=== PATIENT | female | born 1955 | race Caucasian/White ===

== ENCOUNTER 2017-11-10 01:53 | Inpatient (IN) | payer MEDICAID, OTHER ==
[2017-11-10 04:39] LABS: ADD MAN DIFF? NO
[2017-11-10 04:40] LABS: BASOPHIL # 0.1 10^3/ul (0.0-0.1); BASOPHILS % 0.9 % (0.0-2.0); EOSINOPHILS # 0.2 10^3/ul (0.0-0.5); HEMATOCRIT 38.4 % (37.0-47.0); HEMOGLOBIN 12.6 g/dl (12.0-16.0); LYMPHOCYTES # 2.2 10^3/ul (0.8-2.9); MEAN CORPUSCULAR HEMOGLOBIN 29.6 pg (29.0-33.0); MEAN CORPUSCULAR HGB CONC 32.8 g/dl (32.0-37.0); MEAN CORPUSCULAR VOLUME 90.4 fl (82.0-101.0); MEAN PLATELET VOLUME 10.3 fl (7.4-10.4); MONOCYTE # 0.8 10^3/ul (0.3-0.9); MONOCYTES % 9.9 % (0.0-11.0); NEUTROPHIL # 4.7 10^3/ul (1.6-7.5); NEUTROPHILS % 58.7 % (39.0-77.0); PLATELET COUNT 293 10^3/UL (140-415); RED BLOOD COUNT 4.25 10^6/ul (4.20-5.40); RED CELL DISTRIBUTION WIDTH 15.1 % (11.5-14.5)
[2017-11-10 05:05] LABS: ALANINE AMINOTRANSFERASE 20 IU/L (13-69); ALBUMIN 3.8 g/dl (3.3-4.9); ALKALINE PHOSPHATASE 78 IU/L (42-121); ANION GAP 15 (8-16); ASPARTATE AMINO TRANSFERASE 20 IU/L (15-46); BILIRUBIN,INDIRECT 0.3 mg/dl (0-1.1); BILIRUBIN,TOTAL 0.3 mg/dl (0.2-1.3); BLOOD UREA NITROGEN 26 mg/dl (7-20); CALCIUM 9.3 mg/dl (8.4-10.2); CARBON DIOXIDE 29 mmol/L (21-31); CHLORIDE 104 mmol/L (97-110); CREATININE 0.88 mg/dl (0.44-1.00); GLUCOSE 103 mg/dl (70-220); LIPASE 61 U/L (23-300); POTASSIUM 3.7 mmol/L (3.5-5.1); SODIUM 144 mmol/L (135-144)
[2017-11-10] MEDS: PIPER-TAZO 3.375 GM IV (PMX) 100 ML IVPB ×3 (06:02→23:37)
[2017-11-10] MEDS: ONDANSETRON 4 MG INJ IV (06:30)
[2017-11-10] MEDS: morphine 4 MG/ML VIAL IV (06:35)
[2017-11-10 07:36] LABS: ADD UMIC YES; UR ASCORBIC ACID NEGATIVE (NEGATIVE); UR BACTERIA FEW /HPF (NONE SEEN); UR BILIRUBIN (Dip) NEGATIVE (NEGATIVE); UR BLOOD (Dip) 1+ mg/dL (NEGATIVE); UR BUDDING YEAST MODERATE /HPF (NONE SEEN); UR CLARITY TURBID (CLEAR); UR COLOR YELLOW (YELLOW); UR GLUCOSE (Dip) NEGATIVE (NEGATIVE); UR KETONES (Dip) NEGATIVE (NEGATIVE); UR LEUKOCYTE ESTERASE (Dip) NEGATIVE Leu/ul (NEGATIVE); UR MUCUS MANY /HPF (NONE SEEN); UR NITRITE (Dip) NEGATIVE (NEGATIVE); UR RBC 10 /HPF (0-5); UR SPECIFIC GRAVITY (Dip) 1.032 (1.003-1.030); UR SQUAMOUS EPITHELIAL CELL FEW /HPF (FEW); UR TOTAL PROTEIN (Dip) 1+ mg/dl (NEGATIVE); UR UROBILINOGEN (Dip) 1+ mg/dL (NEGATIVE); UR WBC 49 /HPF (0-5)
[2017-11-10] MEDS ORDERED: MAGNESIUM HYDROXIDE 30ML CUP PO (08:30)
[2017-11-10] MEDS ORDERED: NACL 0.9% 3 ML SYG IV (08:30)
[2017-11-10] MEDS ORDERED: ONDANSETRON 4 MG INJ IV (08:30)
[2017-11-10] MEDS ORDERED: BISACODYL 10 MG SUPP PR (08:30)
[2017-11-10] MEDS ORDERED: VANCOMYCIN IV PER PHARMACY XX (08:30)
[2017-11-10] MEDS ORDERED: HYDROCODONE/APAP (5/325) TAB PO ×2 (08:30)
[2017-11-10] MEDS: ASPIRIN 81 MG TAB PO (09:22)
[2017-11-10] MEDS: GABAPENTIN 300 MG CAP PO (09:23)
[2017-11-10] MEDS: ENOXAPARIN 40 MG/0.4 ML SYG SC (09:23)
[2017-11-10] MEDS: VANCOMYCIN 1 GM in 250 ML IVPB ×2 (09:47→11:43)
[2017-11-10] MEDS: GABAPENTIN 100 MG CAP PO ×3 (13:00→23:38)
[2017-11-10 16:48] LABS: HAAIG REFLEX REFLEX FILED
[2017-11-10 17:46] LABS: HEPATITIS B SURFACE ANTIGEN NEGATIVE (NEGATIVE)
[2017-11-10 18:03] LABS: HEPATITIS B CORE ANTIBODY NEGATIVE (NEGATIVE); HEPATITIS C VIRAL ANTIBODY NEGATIVE (NEGATIVE)
[2017-11-10 18:04] LABS: HIV 1&2 ANTIBODY NEGATIVE (NEGATIVE)
[2017-11-10 19:29] LABS: HEMOGLOBIN A1C 5.8 % (0-5.9)
[2017-11-10] MEDS: MONTELUKAST 10 MG TAB PO (21:00)
[2017-11-11] MEDS: VANCOMYCIN 1.5 GM in SOD CHLORIDE 0.9% 250 ML IVPB ×3 (02:20→16:25)
[2017-11-11] MEDS: PIPER-TAZO 3.375 GM IV (PMX) 100 ML IVPB ×3 (05:51→21:44)
[2017-11-11] MEDS: PANTOPRAZOLE (EC) 40 MG TAB PO (05:52)
[2017-11-11] MEDS: ASPIRIN 81 MG TAB PO (09:00)
[2017-11-11] MEDS: ENOXAPARIN 40 MG/0.4 ML SYG SC (09:00)
[2017-11-11] MEDS: GABAPENTIN 100 MG CAP PO ×5 (09:21→21:44)
[2017-11-11] MEDS: ACETAMINOPHEN 325 MG TAB PO ×2 (09:22→17:14)
[2017-11-11] MEDS: CHOLECALCIFEROL 2,000 UNIT CAP PO ×2 (12:50→13:57)
[2017-11-11] MEDS: LACTOBACILLUS RHAMNOSUS CAP PO (17:14)
[2017-11-11] MEDS: MONTELUKAST 10 MG TAB PO (21:00)
[2017-11-12 03:51] LABS: ADD MAN DIFF? NO
[2017-11-12 04:11] LABS: WHITE BLOOD COUNT 6.4 10^3/ul (4.8-10.8)
[2017-11-12 04:11] LABS: BASOPHIL # 0.1 10^3/ul (0.0-0.1); BASOPHILS % 1.1 % (0.0-2.0); EOSINOPHILS # 0.4 10^3/ul (0.0-0.5); EOSINOPHILS % 6.2 % (0.0-7.0); HEMOGLOBIN 11.1 g/dl (12.0-16.0); LYMPHOCYTES # 1.5 10^3/ul (0.8-2.9); LYMPHOCYTES % 23.6 % (15.0-51.0); MEAN CORPUSCULAR HEMOGLOBIN 29.8 pg (29.0-33.0); MEAN CORPUSCULAR HGB CONC 32.6 g/dl (32.0-37.0); MEAN CORPUSCULAR VOLUME 91.4 fl (82.0-101.0); MEAN PLATELET VOLUME 10.2 fl (7.4-10.4); MONOCYTE # 0.4 10^3/ul (0.3-0.9); MONOCYTES % 6.2 % (0.0-11.0); NEUTROPHILS % 62.6 % (39.0-77.0); PLATELET COUNT 242 10^3/UL (140-415); RED BLOOD COUNT 3.72 10^6/ul (4.20-5.40); RED CELL DISTRIBUTION WIDTH 15.4 % (11.5-14.5)
[2017-11-12 04:12] LABS: ALBUMIN 3.2 g/dl (3.3-4.9); ANION GAP 14 (8-16); BLOOD UREA NITROGEN 24 mg/dl (7-20); CALCIUM 8.4 mg/dl (8.4-10.2); CARBON DIOXIDE 28 mmol/L (21-31); CHLORIDE 107 mmol/L (97-110); CREATININE 0.93 mg/dl (0.44-1.00); GLUCOSE 121 mg/dl (70-220); MAGNESIUM 2.1 mg/dl (1.7-2.5); PHOSPHORUS 3.4 mg/dl (2.5-4.9); SODIUM 145 mmol/L (135-144)
[2017-11-12 04:16] LABS: VANCOMYCIN,TROUGH 13.9 ug/ml (10.0-20.0)
[2017-11-12 04:31] LABS: FREE T4 (FREE THYROXINE) 0.89 ng/dl (0.78-2.44)
[2017-11-12] MEDS: VANCOMYCIN 1.5 GM in SOD CHLORIDE 0.9% 250 ML IVPB (04:37)
[2017-11-12 05:20] LABS: FREE T3 4.53 pg/ml (2.77-5.27)
[2017-11-12] MEDS: PANTOPRAZOLE (EC) 40 MG TAB PO (06:08)
[2017-11-12] MEDS: ACETAMINOPHEN 325 MG TAB PO (06:31)
[2017-11-12] MEDS: CHOLECALCIFEROL 2,000 UNIT CAP PO (09:49)
[2017-11-12] MEDS: GABAPENTIN 100 MG CAP PO ×4 (09:49→21:39)
[2017-11-12] MEDS: PIPER-TAZO 3.375 GM IV (PMX) 100 ML IVPB ×3 (09:49→21:40)
[2017-11-12] MEDS: ASPIRIN 81 MG TAB PO (09:49)
[2017-11-12] MEDS: LACTOBACILLUS RHAMNOSUS CAP PO ×3 (09:49→17:30)
[2017-11-12] MEDS: VANCOMYCIN 1.25 GM in SOD CHLORIDE 0.9% 250 ML IVPB (17:30)
[2017-11-12] MEDS: MONTELUKAST 10 MG TAB PO (21:00)
[2017-11-13] MEDS: VANCOMYCIN 1.25 GM in SOD CHLORIDE 0.9% 250 ML IVPB ×2 (04:12→16:12)
[2017-11-13] MEDS: PANTOPRAZOLE (EC) 40 MG TAB PO (06:04)
[2017-11-13] MEDS: LACTOBACILLUS RHAMNOSUS CAP PO ×3 (07:35→17:50)
[2017-11-13] MEDS: GABAPENTIN 100 MG CAP PO ×4 (09:43→20:57)
[2017-11-13] MEDS: CHOLECALCIFEROL 2,000 UNIT CAP PO (09:43)
[2017-11-13] MEDS: ASPIRIN 81 MG TAB PO (09:43)
[2017-11-13] MEDS: PIPER-TAZO 3.375 GM IV (PMX) 100 ML IVPB (09:43)
[2017-11-13] MEDS: ERGOCALCIFEROL 50,000 UNIT CAP PO (12:04)
[2017-11-13] MEDS: CEFTRIAXONE 1 GM/50 ML (PMX) 50 ML IVPB (13:16)
[2017-11-13] MEDS: MONTELUKAST 10 MG TAB PO (21:00)
[2017-11-14 03:53] LABS: CREATININE 0.92 mg/dl (0.44-1.00)
[2017-11-14 03:53] LABS: BLOOD UREA NITROGEN 19 mg/dl (7-20)
[2017-11-14 03:59] LABS: VANCOMYCIN,TROUGH 15.9 ug/ml (10.0-20.0)
[2017-11-14] MEDS: VANCOMYCIN 1.25 GM in SOD CHLORIDE 0.9% 250 ML IVPB (04:31)
[2017-11-14] MEDS ORDERED: GABAPENTIN 100 MG CAP (04:55)
[2017-11-14] MEDS: GABAPENTIN 100 MG CAP PO ×4 (05:22→23:36)
[2017-11-14] MEDS: PANTOPRAZOLE (EC) 40 MG TAB PO (05:24)
[2017-11-14] MEDS: LACTOBACILLUS RHAMNOSUS CAP PO ×3 (08:40→17:30)
[2017-11-14] MEDS: CHOLECALCIFEROL 2,000 UNIT CAP PO (08:40)
[2017-11-14] MEDS: ASPIRIN 81 MG TAB PO (08:40)
[2017-11-14] MEDS: CEFTRIAXONE 1 GM/50 ML (PMX) 50 ML IVPB (12:43)
[2017-11-14] MEDS: VANCOMYCIN 1 GM 250 ML IVPB (17:29)
[2017-11-14] MEDS: MONTELUKAST 10 MG TAB PO (21:00)
[2017-11-15] MEDS: VANCOMYCIN 1 GM 250 ML IVPB ×2 (05:54→18:31)
[2017-11-15] MEDS: PANTOPRAZOLE (EC) 40 MG TAB PO (05:54)
[2017-11-15] MEDS: GABAPENTIN 100 MG CAP PO ×3 (05:54→17:19)
[2017-11-15] MEDS: ASPIRIN 81 MG TAB PO (08:25)
[2017-11-15] MEDS: CHOLECALCIFEROL 2,000 UNIT CAP PO (08:25)
[2017-11-15] MEDS: LACTOBACILLUS RHAMNOSUS CAP PO ×3 (08:25→17:19)
[2017-11-15] MEDS: CEFTRIAXONE 1 GM/50 ML (PMX) 50 ML IVPB (12:41)
[2017-11-15] MEDS: IBUPROFEN 600 MG TAB GTB (15:07)
[2017-11-15] MEDS: MONTELUKAST 10 MG TAB PO (21:00)
[2017-11-16] MEDS: GABAPENTIN 100 MG CAP PO ×5 (00:12→23:26)
[2017-11-16] MEDS: PANTOPRAZOLE (EC) 40 MG TAB PO (05:34)
[2017-11-16] MEDS: VANCOMYCIN 1 GM 250 ML IVPB (05:34)
[2017-11-16] MEDS: ASPIRIN 81 MG TAB PO (09:00)
[2017-11-16] MEDS: LACTOBACILLUS RHAMNOSUS CAP PO ×3 (09:28→18:30)
[2017-11-16] MEDS: CHOLECALCIFEROL 2,000 UNIT CAP PO (09:30)
[2017-11-16] MEDS ORDERED: ACETAMINOPHEN 1000MG/100ML IV 100 ML IVPB (12:30)
[2017-11-16] MEDS: CEFTRIAXONE 1 GM/50 ML (PMX) 50 ML IVPB (13:35)
[2017-11-16] MEDS: FUROSEMIDE 20 MG INJ IV (13:36)
[2017-11-16] MEDS ORDERED: IBUPROFEN 600 MG TAB PO (15:00)
[2017-11-16] MEDS: IBUPROFEN 600 MG TAB PO (15:11)
[2017-11-16] MEDS: MONTELUKAST 10 MG TAB PO (21:00)
[2017-11-16] MEDS: DOXYCYCLINE 100 MG TAB PO (21:23)
[2017-11-17] MEDS: GABAPENTIN 100 MG CAP PO ×3 (05:50→17:48)
[2017-11-17] MEDS: PANTOPRAZOLE (EC) 40 MG TAB PO (05:50)
[2017-11-17] MEDS: ASPIRIN 81 MG TAB PO (09:00)
[2017-11-17 09:58] LABS: ADD MAN DIFF? NO
[2017-11-17 10:01] LABS: BASOPHIL # 0.1 10^3/ul (0.0-0.1); BASOPHILS % 1.1 % (0.0-2.0); EOSINOPHILS # 0.4 10^3/ul (0.0-0.5); EOSINOPHILS % 5.2 % (0.0-7.0); HEMATOCRIT 35.7 % (37.0-47.0); HEMOGLOBIN 11.8 g/dl (12.0-16.0); LYMPHOCYTES # 1.9 10^3/ul (0.8-2.9); MEAN CORPUSCULAR HEMOGLOBIN 30.2 pg (29.0-33.0); MEAN CORPUSCULAR HGB CONC 33.1 g/dl (32.0-37.0); MEAN CORPUSCULAR VOLUME 91.3 fl (82.0-101.0); MEAN PLATELET VOLUME 10.2 fl (7.4-10.4); MONOCYTE # 0.5 10^3/ul (0.3-0.9); NEUTROPHIL # 4.6 10^3/ul (1.6-7.5); NEUTROPHILS % 61.4 % (39.0-77.0); PLATELET COUNT 256 10^3/UL (140-415); RED BLOOD COUNT 3.91 10^6/ul (4.20-5.40); RED CELL DISTRIBUTION WIDTH 15.4 % (11.5-14.5)
[2017-11-17 10:01] LABS: WHITE BLOOD COUNT 7.5 10^3/ul (4.8-10.8)
[2017-11-17 10:32] LABS: ANION GAP 14 (8-16); BLOOD UREA NITROGEN 24 mg/dl (7-20); CALCIUM 8.8 mg/dl (8.4-10.2); CARBON DIOXIDE 27 mmol/L (21-31); CHLORIDE 103 mmol/L (97-110); CREATININE 0.87 mg/dl (0.44-1.00); GLUCOSE 131 mg/dl (70-220); MAGNESIUM 2.1 mg/dl (1.7-2.5); POTASSIUM 4.3 mmol/L (3.5-5.1); SODIUM 140 mmol/L (135-144)
[2017-11-17] MEDS: CHOLECALCIFEROL 2,000 UNIT CAP PO (10:47)
[2017-11-17] MEDS: ACETAMINOPHEN 325 MG TAB PO (10:47)
[2017-11-17] MEDS: LACTOBACILLUS RHAMNOSUS CAP PO ×3 (10:47→17:48)
[2017-11-17] MEDS: DOXYCYCLINE 100 MG TAB PO ×2 (10:47→20:50)
[2017-11-17] MEDS: FUROSEMIDE 20 MG INJ IV ×2 (10:48→17:51)
[2017-11-17] MEDS: MONTELUKAST 10 MG TAB PO (20:50)
[2017-11-18] MEDS: GABAPENTIN 100 MG CAP PO ×4 (00:05→17:23)
[2017-11-18] MEDS: ACETAMINOPHEN 325 MG TAB PO (04:53)
[2017-11-18] MEDS: FUROSEMIDE 20 MG INJ IV (06:00)
[2017-11-18] MEDS: PANTOPRAZOLE (EC) 40 MG TAB PO (06:00)
[2017-11-18 06:32] LABS: ADD MAN DIFF? NO
[2017-11-18 06:46] LABS: WHITE BLOOD COUNT 7.2 10^3/ul (4.8-10.8)
[2017-11-18 06:46] LABS: BASOPHIL # 0.1 10^3/ul (0.0-0.1); EOSINOPHILS # 0.4 10^3/ul (0.0-0.5); EOSINOPHILS % 5.3 % (0.0-7.0); HEMATOCRIT 36.4 % (37.0-47.0); HEMOGLOBIN 11.9 g/dl (12.0-16.0); LYMPHOCYTES # 2.2 10^3/ul (0.8-2.9); MEAN CORPUSCULAR HEMOGLOBIN 29.7 pg (29.0-33.0); MEAN CORPUSCULAR HGB CONC 32.7 g/dl (32.0-37.0); MEAN CORPUSCULAR VOLUME 90.8 fl (82.0-101.0); MEAN PLATELET VOLUME 10.3 fl (7.4-10.4); MONOCYTE # 0.6 10^3/ul (0.3-0.9); MONOCYTES % 8.4 % (0.0-11.0); NEUTROPHIL # 3.9 10^3/ul (1.6-7.5); PLATELET COUNT 235 10^3/UL (140-415); RED BLOOD COUNT 4.01 10^6/ul (4.20-5.40); RED CELL DISTRIBUTION WIDTH 15.4 % (11.5-14.5)
[2017-11-18 06:57] LABS: ANION GAP 12 (8-16); BLOOD UREA NITROGEN 27 mg/dl (7-20); CALCIUM 8.6 mg/dl (8.4-10.2); CARBON DIOXIDE 29 mmol/L (21-31); CHLORIDE 102 mmol/L (97-110); GLUCOSE 95 mg/dl (70-220); MAGNESIUM 2.1 mg/dl (1.7-2.5); PHOSPHORUS 4.1 mg/dl (2.5-4.9); POTASSIUM 4.1 mmol/L (3.5-5.1); SODIUM 139 mmol/L (135-144)
[2017-11-18] MEDS: DOXYCYCLINE 100 MG TAB PO ×2 (08:33→21:03)
[2017-11-18] MEDS: LACTOBACILLUS RHAMNOSUS CAP PO ×3 (08:33→17:22)
[2017-11-18] MEDS: CHOLECALCIFEROL 2,000 UNIT CAP PO (08:33)
[2017-11-18] MEDS: ASPIRIN 81 MG TAB PO (08:33)
[2017-11-18] MEDS: FUROSEMIDE 40 MG INJ IV (17:23)
[2017-11-18] MEDS: MONTELUKAST 10 MG TAB PO (21:00)
[2017-11-19] MEDS: GABAPENTIN 100 MG CAP PO ×4 (00:10→18:03)
[2017-11-19] MEDS: PANTOPRAZOLE (EC) 40 MG TAB PO (05:56)
[2017-11-19] MEDS: FUROSEMIDE 40 MG INJ IV ×2 (05:59→18:03)
[2017-11-19 06:33] LABS: ADD MAN DIFF? NO
[2017-11-19 06:43] LABS: WHITE BLOOD COUNT 7.4 10^3/ul (4.8-10.8)
[2017-11-19 06:43] LABS: BASOPHIL # 0.1 10^3/ul (0.0-0.1); BASOPHILS % 1.3 % (0.0-2.0); EOSINOPHILS # 0.4 10^3/ul (0.0-0.5); HEMATOCRIT 33.9 % (37.0-47.0); HEMOGLOBIN 11.2 g/dl (12.0-16.0); LYMPHOCYTES # 2.2 10^3/ul (0.8-2.9); LYMPHOCYTES % 28.9 % (15.0-51.0); MEAN CORPUSCULAR HEMOGLOBIN 29.8 pg (29.0-33.0); MEAN CORPUSCULAR VOLUME 90.2 fl (82.0-101.0); MONOCYTE # 0.6 10^3/ul (0.3-0.9); MONOCYTES % 8.1 % (0.0-11.0); NEUTROPHIL # 4.2 10^3/ul (1.6-7.5); NEUTROPHILS % 56.3 % (39.0-77.0); PLATELET COUNT 243 10^3/UL (140-415); RED BLOOD COUNT 3.76 10^6/ul (4.20-5.40); RED CELL DISTRIBUTION WIDTH 15.6 % (11.5-14.5)
[2017-11-19 07:08] LABS: ANION GAP 12 (8-16); BLOOD UREA NITROGEN 26 mg/dl (7-20); CALCIUM 8.6 mg/dl (8.4-10.2); CARBON DIOXIDE 32 mmol/L (21-31); CHLORIDE 101 mmol/L (97-110); CREATININE 0.87 mg/dl (0.44-1.00); GLUCOSE 103 mg/dl (70-220); MAGNESIUM 2.2 mg/dl (1.7-2.5); PHOSPHORUS 4.1 mg/dl (2.5-4.9); POTASSIUM 4.2 mmol/L (3.5-5.1); SODIUM 141 mmol/L (135-144)
[2017-11-19] MEDS: LACTOBACILLUS RHAMNOSUS CAP PO ×3 (09:09→18:03)
[2017-11-19] MEDS: DOXYCYCLINE 100 MG TAB PO ×2 (09:09→22:35)
[2017-11-19] MEDS: CHOLECALCIFEROL 2,000 UNIT CAP PO (09:09)
[2017-11-19] MEDS: ASPIRIN 81 MG TAB PO (09:09)
[2017-11-19] MEDS: MONTELUKAST 10 MG TAB PO (21:00)
[2017-11-20] MEDS: GABAPENTIN 100 MG CAP PO ×5 (00:26→23:55)
[2017-11-20] MEDS: FUROSEMIDE 40 MG INJ IV (06:13)
[2017-11-20] MEDS: PANTOPRAZOLE (EC) 40 MG TAB PO (06:13)
[2017-11-20 07:09] LABS: ADD MAN DIFF? NO
[2017-11-20 07:16] LABS: BASOPHIL # 0.1 10^3/ul (0.0-0.1); BASOPHILS % 0.9 % (0.0-2.0); EOSINOPHILS # 0.4 10^3/ul (0.0-0.5); EOSINOPHILS % 4.7 % (0.0-7.0); HEMATOCRIT 36.2 % (37.0-47.0); HEMOGLOBIN 11.9 g/dl (12.0-16.0); LYMPHOCYTES # 2.1 10^3/ul (0.8-2.9); LYMPHOCYTES % 28.5 % (15.0-51.0); MEAN CORPUSCULAR HEMOGLOBIN 29.7 pg (29.0-33.0); MEAN CORPUSCULAR HGB CONC 32.9 g/dl (32.0-37.0); MEAN CORPUSCULAR VOLUME 90.3 fl (82.0-101.0); MEAN PLATELET VOLUME 10.2 fl (7.4-10.4); MONOCYTE # 0.7 10^3/ul (0.3-0.9); MONOCYTES % 9.4 % (0.0-11.0); NEUTROPHIL # 4.2 10^3/ul (1.6-7.5); NEUTROPHILS % 56.1 % (39.0-77.0); PLATELET COUNT 256 10^3/UL (140-415); RED BLOOD COUNT 4.01 10^6/ul (4.20-5.40); RED CELL DISTRIBUTION WIDTH 15.8 % (11.5-14.5)
[2017-11-20 07:16] LABS: WHITE BLOOD COUNT 7.5 10^3/ul (4.8-10.8)
[2017-11-20 07:31] LABS: ANION GAP 13 (8-16); BLOOD UREA NITROGEN 31 mg/dl (7-20); CALCIUM 8.6 mg/dl (8.4-10.2); CARBON DIOXIDE 31 mmol/L (21-31); CHLORIDE 100 mmol/L (97-110); CREATININE 0.86 mg/dl (0.44-1.00); GLUCOSE 95 mg/dl (70-220); MAGNESIUM 2.2 mg/dl (1.7-2.5); POTASSIUM 4.1 mmol/L (3.5-5.1); SODIUM 140 mmol/L (135-144)
[2017-11-20] MEDS: DOXYCYCLINE 100 MG TAB PO ×2 (08:12→22:12)
[2017-11-20] MEDS: ASPIRIN 81 MG TAB PO (08:12)
[2017-11-20] MEDS: CHOLECALCIFEROL 2,000 UNIT CAP PO (08:12)
[2017-11-20] MEDS: LACTOBACILLUS RHAMNOSUS CAP PO ×3 (08:12→17:43)
[2017-11-20] MEDS: ACETAMINOPHEN 325 MG TAB PO ×2 (08:13→17:47)
[2017-11-20] MEDS: ERGOCALCIFEROL 50,000 UNIT CAP PO (10:40)
[2017-11-20] MEDS: BUPROPION 100 MG TAB PO (13:30)
[2017-11-20] MEDS ORDERED: VITAMIN A & D 5 GM OINT PACKET TOP (20:24)
[2017-11-20] MEDS: MONTELUKAST 10 MG TAB PO (20:25)
[2017-11-21] MEDS: ACETAMINOPHEN 325 MG TAB PO ×3 (03:02→22:05)
[2017-11-21] MEDS ORDERED: VITAMIN A & D 5 GM OINT PACKET TOP ×3 (05:28→20:23)
[2017-11-21 05:39] LABS: ADD MAN DIFF? NO
[2017-11-21 05:40] LABS: BASOPHIL # 0.1 10^3/ul (0.0-0.1); BASOPHILS % 1.4 % (0.0-2.0); EOSINOPHILS # 0.4 10^3/ul (0.0-0.5); EOSINOPHILS % 6.2 % (0.0-7.0); HEMATOCRIT 36.6 % (37.0-47.0); HEMOGLOBIN 12.1 g/dl (12.0-16.0); LYMPHOCYTES # 2.2 10^3/ul (0.8-2.9); LYMPHOCYTES % 30.7 % (15.0-51.0); MEAN CORPUSCULAR HEMOGLOBIN 30.1 pg (29.0-33.0); MEAN CORPUSCULAR HGB CONC 33.1 g/dl (32.0-37.0); MEAN PLATELET VOLUME 9.9 fl (7.4-10.4); MONOCYTE # 0.7 10^3/ul (0.3-0.9); MONOCYTES % 9.3 % (0.0-11.0); NEUTROPHIL # 3.7 10^3/ul (1.6-7.5); PLATELET COUNT 246 10^3/UL (140-415); RED BLOOD COUNT 4.02 10^6/ul (4.20-5.40); RED CELL DISTRIBUTION WIDTH 15.5 % (11.5-14.5)
[2017-11-21 05:40] LABS: WHITE BLOOD COUNT 7.1 10^3/ul (4.8-10.8)
[2017-11-21 06:01] LABS: ANION GAP 13 (8-16); BLOOD UREA NITROGEN 28 mg/dl (7-20); CALCIUM 8.8 mg/dl (8.4-10.2); CARBON DIOXIDE 28 mmol/L (21-31); CHLORIDE 102 mmol/L (97-110); CREATININE 0.88 mg/dl (0.44-1.00); GLUCOSE 101 mg/dl (70-220); MAGNESIUM 2.1 mg/dl (1.7-2.5); PHOSPHORUS 4.1 mg/dl (2.5-4.9); POTASSIUM 4.2 mmol/L (3.5-5.1); SODIUM 139 mmol/L (135-144)
[2017-11-21] MEDS: PANTOPRAZOLE (EC) 40 MG TAB PO (06:46)
[2017-11-21] MEDS: FUROSEMIDE 20 MG TAB PO (06:46)
[2017-11-21] MEDS: GABAPENTIN 100 MG CAP PO ×3 (06:46→17:32)
[2017-11-21] MEDS: CHOLECALCIFEROL 2,000 UNIT CAP PO (08:29)
[2017-11-21] MEDS: ASPIRIN 81 MG TAB PO (08:29)
[2017-11-21] MEDS: LACTOBACILLUS RHAMNOSUS CAP PO ×3 (08:29→17:32)
[2017-11-21] MEDS: DOXYCYCLINE 100 MG TAB PO ×2 (08:29→20:25)
[2017-11-21] MEDS: BUPROPION 100 MG TAB PO (08:30)
[2017-11-21] MEDS: NAPROXEN 250 MG TAB PO ×2 (12:04→17:32)
[2017-11-21] MEDS: MONTELUKAST 10 MG TAB PO (20:25)
[2017-11-22] MEDS: GABAPENTIN 100 MG CAP PO ×2 (00:33→05:54)
[2017-11-22] MEDS: FUROSEMIDE 20 MG TAB PO (05:55)
[2017-11-22] MEDS: PANTOPRAZOLE (EC) 40 MG TAB PO (05:55)
[2017-11-22] MEDS: BUPROPION 100 MG TAB PO (08:22)
[2017-11-22] MEDS: ASPIRIN 81 MG TAB PO (08:23)
[2017-11-22] MEDS: LACTOBACILLUS RHAMNOSUS CAP PO ×3 (08:23→17:27)
[2017-11-22] MEDS: CHOLECALCIFEROL 2,000 UNIT CAP PO (08:23)
[2017-11-22] MEDS: NAPROXEN 250 MG TAB PO ×2 (08:23→17:27)
[2017-11-22] MEDS: DOXYCYCLINE 100 MG TAB PO ×2 (08:23→20:33)
[2017-11-22 09:09] LABS: ADD MAN DIFF? NO
[2017-11-22 09:12] LABS: BASOPHIL # 0.1 10^3/ul (0.0-0.1); BASOPHILS % 1.4 % (0.0-2.0); EOSINOPHILS # 0.6 10^3/ul (0.0-0.5); EOSINOPHILS % 7.7 % (0.0-7.0); HEMATOCRIT 38.8 % (37.0-47.0); HEMOGLOBIN 12.5 g/dl (12.0-16.0); LYMPHOCYTES # 2.1 10^3/ul (0.8-2.9); LYMPHOCYTES % 29.5 % (15.0-51.0); MEAN CORPUSCULAR HEMOGLOBIN 29.4 pg (29.0-33.0); MEAN CORPUSCULAR HGB CONC 32.2 g/dl (32.0-37.0); MEAN CORPUSCULAR VOLUME 91.3 fl (82.0-101.0); MEAN PLATELET VOLUME 9.8 fl (7.4-10.4); MONOCYTE # 0.4 10^3/ul (0.3-0.9); NEUTROPHIL # 3.9 10^3/ul (1.6-7.5); NEUTROPHILS % 55.1 % (39.0-77.0); PLATELET COUNT 257 10^3/UL (140-415); RED BLOOD COUNT 4.25 10^6/ul (4.20-5.40); RED CELL DISTRIBUTION WIDTH 15.5 % (11.5-14.5)
[2017-11-22 09:12] LABS: WHITE BLOOD COUNT 7.2 10^3/ul (4.8-10.8)
[2017-11-22 09:38] LABS: ANION GAP 17 (8-16); BLOOD UREA NITROGEN 29 mg/dl (7-20); CALCIUM 8.9 mg/dl (8.4-10.2); CARBON DIOXIDE 28 mmol/L (21-31); CHLORIDE 100 mmol/L (97-110); GLUCOSE 152 mg/dl (70-220); PHOSPHORUS 3.9 mg/dl (2.5-4.9); POTASSIUM 4.6 mmol/L (3.5-5.1); SODIUM 140 mmol/L (135-144)
[2017-11-22] MEDS: GABAPENTIN 300 MG CAP PO ×2 (12:17→20:32)
[2017-11-22] MEDS: ACETAMINOPHEN 325 MG TAB PO ×2 (17:31→23:41)
[2017-11-22] MEDS: MONTELUKAST 10 MG TAB PO (20:33)
[2017-11-22] MEDS: DOCUSATE SODIUM 100 MG CAP PO (22:22)
[2017-11-23] MEDS: GABAPENTIN 300 MG CAP PO ×2 (02:42→08:52)
[2017-11-23] MEDS ORDERED: VITAMIN A & D 5 GM OINT PACKET TOP ×2 (03:15→16:36)
[2017-11-23] MEDS: PANTOPRAZOLE (EC) 40 MG TAB PO (06:44)
[2017-11-23] MEDS: ACETAMINOPHEN 325 MG TAB PO ×2 (06:44→17:02)
[2017-11-23] MEDS: FUROSEMIDE 20 MG TAB PO (08:53)
[2017-11-23] MEDS: CHOLECALCIFEROL 2,000 UNIT CAP PO (08:53)
[2017-11-23] MEDS: NAPROXEN 250 MG TAB PO ×2 (08:53→17:39)
[2017-11-23] MEDS: LACTOBACILLUS RHAMNOSUS CAP PO ×3 (08:53→17:38)
[2017-11-23] MEDS: ASPIRIN 81 MG TAB PO (08:53)
[2017-11-23 10:34] LABS: ADD MAN DIFF? NO
[2017-11-23 10:36] LABS: BASOPHIL # 0.1 10^3/ul (0.0-0.1); BASOPHILS % 0.9 % (0.0-2.0); EOSINOPHILS # 0.5 10^3/ul (0.0-0.5); EOSINOPHILS % 6.9 % (0.0-7.0); HEMATOCRIT 36.1 % (37.0-47.0); HEMOGLOBIN 11.6 g/dl (12.0-16.0); LYMPHOCYTES # 1.7 10^3/ul (0.8-2.9); MEAN CORPUSCULAR HEMOGLOBIN 29.1 pg (29.0-33.0); MEAN CORPUSCULAR HGB CONC 32.1 g/dl (32.0-37.0); MEAN CORPUSCULAR VOLUME 90.7 fl (82.0-101.0); MEAN PLATELET VOLUME 10.1 fl (7.4-10.4); MONOCYTE # 0.6 10^3/ul (0.3-0.9); MONOCYTES % 7.9 % (0.0-11.0); NEUTROPHIL # 4.6 10^3/ul (1.6-7.5); PLATELET COUNT 240 10^3/UL (140-415); RED BLOOD COUNT 3.98 10^6/ul (4.20-5.40); RED CELL DISTRIBUTION WIDTH 15.6 % (11.5-14.5)
[2017-11-23 10:36] LABS: WHITE BLOOD COUNT 7.6 10^3/ul (4.8-10.8)
[2017-11-23 11:01] LABS: ANION GAP 15 (8-16); BLOOD UREA NITROGEN 36 mg/dl (7-20); CALCIUM 8.6 mg/dl (8.4-10.2); CARBON DIOXIDE 28 mmol/L (21-31); CHLORIDE 101 mmol/L (97-110); CREATININE 0.94 mg/dl (0.44-1.00); GLUCOSE 112 mg/dl (70-220); PHOSPHORUS 3.9 mg/dl (2.5-4.9); POTASSIUM 4.7 mmol/L (3.5-5.1); SODIUM 139 mmol/L (135-144)
[2017-11-23] MEDS: DOXYCYCLINE 100 MG TAB PO ×2 (11:52→20:58)
[2017-11-23] MEDS: GABAPENTIN 100 MG CAP PO ×2 (12:45→17:38)
[2017-11-23] MEDS: MONTELUKAST 10 MG TAB PO (20:59)
[2017-11-24] MEDS: GABAPENTIN 100 MG CAP PO ×5 (00:11→23:58)
[2017-11-24] MEDS: PANTOPRAZOLE (EC) 40 MG TAB PO (05:59)
[2017-11-24] MEDS: FUROSEMIDE 40 MG INJ IV (08:08)
[2017-11-24] MEDS: CHOLECALCIFEROL 2,000 UNIT CAP PO (08:08)
[2017-11-24] MEDS: LACTOBACILLUS RHAMNOSUS CAP PO ×3 (08:08→17:55)
[2017-11-24] MEDS: ASPIRIN 81 MG TAB PO (08:08)
[2017-11-24] MEDS: NAPROXEN 250 MG TAB PO ×2 (08:08→17:56)
[2017-11-24] MEDS: ENOXAPARIN 40 MG/0.4 ML SYG SC (08:10)
[2017-11-24] MEDS: DOXYCYCLINE 100 MG TAB PO ×2 (09:51→21:40)
[2017-11-24 13:56] LABS: ADD MAN DIFF? NO
[2017-11-24 14:00] LABS: WHITE BLOOD COUNT 8.5 10^3/ul (4.8-10.8)
[2017-11-24 14:00] LABS: BASOPHIL # 0.1 10^3/ul (0.0-0.1); BASOPHILS % 1.4 % (0.0-2.0); EOSINOPHILS # 0.5 10^3/ul (0.0-0.5); EOSINOPHILS % 5.6 % (0.0-7.0); HEMATOCRIT 40.4 % (37.0-47.0); HEMOGLOBIN 13.2 g/dl (12.0-16.0); LYMPHOCYTES # 2.3 10^3/ul (0.8-2.9); LYMPHOCYTES % 26.8 % (15.0-51.0); MEAN CORPUSCULAR HEMOGLOBIN 29.1 pg (29.0-33.0); MEAN CORPUSCULAR HGB CONC 32.7 g/dl (32.0-37.0); MEAN CORPUSCULAR VOLUME 89.2 fl (82.0-101.0); MEAN PLATELET VOLUME 9.7 fl (7.4-10.4); MONOCYTE # 0.6 10^3/ul (0.3-0.9); MONOCYTES % 6.9 % (0.0-11.0); NEUTROPHILS % 58.8 % (39.0-77.0); PLATELET COUNT 287 10^3/UL (140-415); RED BLOOD COUNT 4.53 10^6/ul (4.20-5.40); RED CELL DISTRIBUTION WIDTH 15.7 % (11.5-14.5)
[2017-11-24 14:16] LABS: ANION GAP 16 (8-16); BLOOD UREA NITROGEN 32 mg/dl (7-20); CALCIUM 9.4 mg/dl (8.4-10.2); CARBON DIOXIDE 28 mmol/L (21-31); CHLORIDE 101 mmol/L (97-110); CREATININE 0.96 mg/dl (0.44-1.00); GLUCOSE 122 mg/dl (70-220); POTASSIUM 4.5 mmol/L (3.5-5.1); SODIUM 140 mmol/L (135-144)
[2017-11-24 14:17] LABS: PHOSPHORUS 4.8 mg/dl (2.5-4.9)
[2017-11-24 14:17] LABS: CHOL/HDL RATIO 4.6 RATIO; CHOLESTEROL 183 mg/dl (100-200); HDL CHOLESTEROL 39 mg/dl (35-98); LDL CHOLESTEROL,CALCULATED 106 mg/dl; MAGNESIUM 2.1 mg/dl (1.7-2.5); TRIGLYCERIDES 192 mg/dl (0-149)
[2017-11-24 14:24] LABS: B-TYPE NATRIURETIC PEPTIDE 103 PG/ML (0-125)
[2017-11-24] MEDS: FLUCONAZOLE 200 MG TAB PO (17:56)
[2017-11-24] MEDS ORDERED: MONTELUKAST 10 MG TAB PO (21:00)
[2017-11-24] MEDS: CLOTRIMAZOLE 1% 30 GM CR TOP (21:01)
[2017-11-25] MEDS: ACETAMINOPHEN 325 MG TAB PO (03:09)
[2017-11-25] MEDS: PANTOPRAZOLE (EC) 40 MG TAB PO (05:48)
[2017-11-25] MEDS: GABAPENTIN 100 MG CAP PO ×3 (05:48→17:37)
[2017-11-25] MEDS: CLOTRIMAZOLE 1% 30 GM CR TOP ×3 (09:00→20:42)
[2017-11-25] MEDS: LACTOBACILLUS RHAMNOSUS CAP PO ×3 (09:09→17:37)
[2017-11-25] MEDS: NAPROXEN 250 MG TAB PO ×2 (09:09→17:37)
[2017-11-25] MEDS: DOXYCYCLINE 100 MG TAB PO (10:16)
[2017-11-25] MEDS: ASPIRIN 81 MG TAB PO (10:16)
[2017-11-25] MEDS: CHOLECALCIFEROL 2,000 UNIT CAP PO (10:16)
[2017-11-25] MEDS: FUROSEMIDE 40 MG INJ IV (10:24)
[2017-11-26] MEDS: GABAPENTIN 100 MG CAP PO ×5 (00:16→12:33)
[2017-11-26] MEDS: CLOTRIMAZOLE 1% 30 GM CR TOP (00:18)
[2017-11-26] MEDS: ACETAMINOPHEN 325 MG TAB PO (00:38)
[2017-11-26] MEDS: PANTOPRAZOLE (EC) 40 MG TAB PO ×2 (05:40→05:53)
[2017-11-26] MEDS: LACTOBACILLUS RHAMNOSUS CAP PO ×2 (07:53→12:34)
[2017-11-26] MEDS: CHOLECALCIFEROL 2,000 UNIT CAP PO (08:50)
[2017-11-26] MEDS: NAPROXEN 250 MG TAB PO (08:50)
[2017-11-26] MEDS: ASPIRIN 81 MG TAB PO (08:50)
[2017-11-26] MEDS: FUROSEMIDE 40 MG INJ IV (08:50)
[2017-11-26] MEDS: SERTRALINE 50 MG TAB PO (12:34)
[2017-11-26 15:13] LABS: FREE T4 (FREE THYROXINE) 0.89 ng/dl (0.78-2.44)
== END 2017-11-26 17:21 | disposition home or self-care (01) | DRG 603 ==
LOC: E/R 01:53 → PP2 05:06
DX: L03.116 Cellulitis of left lower limb (principal); R78.81 Bacteremia; Z68.42 Body mass index [BMI] 45.0-49.9, adult; L03.115 Cellulitis of right lower limb; E66.01 Morbid (severe) obesity due to excess calories; Z59.0 Homelessness; F43.10 Post-traumatic stress disorder, unspecified; R73.03 Prediabetes; E55.9 Vitamin D deficiency, unspecified; N63.0 Unspecified lump in unspecified breast; E02 Subclinical iodine-deficiency hypothyroidism; B35.1 Tinea unguium; T75.89XA Other specified effects of external causes, initial encounter; L85.3 Xerosis cutis; R53.82 Chronic fatigue, unspecified; G62.9 Polyneuropathy, unspecified
CPT/HCPCS: 36415; 76642; 80048; 80053; 80061; 80069; 80202; 81001; 82306; 82565; 82607; 82652; 83036; 83690; 83735; 83880; 84100; 84439; 84443; 84481; 84520; 85025; 86703; 86704; 86709; 86803; 87040; 87070; 87081; 87340; 93970; 96365; 96366; 96372; 96375; 96376; 97110; 97116; 97161; 97165; 97530; 99285-25

== ENCOUNTER 2017-12-21 22:23 | Inpatient (IN) | payer MEDICAID ==
[2017-12-22 01:08] LABS: ADD UMIC YES; UR ASCORBIC ACID NEGATIVE (NEGATIVE); UR BILIRUBIN (Dip) NEGATIVE (NEGATIVE); UR BLOOD (Dip) NEGATIVE (NEGATIVE); UR CLARITY SLIGHTLY CLOUDY (CLEAR); UR COLOR YELLOW (YELLOW); UR GLUCOSE (Dip) NEGATIVE (NEGATIVE); UR KETONES (Dip) NEGATIVE (NEGATIVE); UR LEUKOCYTE ESTERASE (Dip) TRACE Leu/ul (NEGATIVE); UR NITRITE (Dip) NEGATIVE (NEGATIVE); UR RBC 5 /HPF (0-5); UR SPECIFIC GRAVITY (Dip) 1.019 (1.003-1.030); UR SQUAMOUS EPITHELIAL CELL FEW /HPF (FEW); UR TOTAL PROTEIN (Dip) NEGATIVE (NEGATIVE); UR UROBILINOGEN (Dip) NEGATIVE (NEGATIVE); UR WBC 3 /HPF (0-5)
[2017-12-22] MEDS: VANCOMYCIN 1 GM (PMX) 250 ML IVPB (01:15)
[2017-12-22 01:41] LABS: ADD MAN DIFF? NO
[2017-12-22 01:47] LABS: BASOPHIL # 0.1 10^3/ul (0.0-0.1); BASOPHILS % 0.6 % (0.0-2.0); EOSINOPHILS # 0.4 10^3/ul (0.0-0.5); EOSINOPHILS % 4.5 % (0.0-7.0); HEMATOCRIT 36.7 % (37.0-47.0); HEMOGLOBIN 11.6 g/dl (12.0-16.0); LYMPHOCYTES # 1.9 10^3/ul (0.8-2.9); LYMPHOCYTES % 24.6 % (15.0-51.0); MEAN CORPUSCULAR HEMOGLOBIN 29.4 pg (29.0-33.0); MEAN CORPUSCULAR HGB CONC 31.6 g/dl (32.0-37.0); MEAN CORPUSCULAR VOLUME 92.9 fl (82.0-101.0); MEAN PLATELET VOLUME 10.1 fl (7.4-10.4); MONOCYTE # 0.6 10^3/ul (0.3-0.9); MONOCYTES % 7.6 % (0.0-11.0); NEUTROPHIL # 4.8 10^3/ul (1.6-7.5); NEUTROPHILS % 62.3 % (39.0-77.0); PLATELET COUNT 246 10^3/UL (140-415); RED BLOOD COUNT 3.95 10^6/ul (4.20-5.40); RED CELL DISTRIBUTION WIDTH 15.3 % (11.5-14.5)
[2017-12-22 01:47] LABS: WHITE BLOOD COUNT 7.7 10^3/ul (4.8-10.8)
[2017-12-22] MEDS: morphine 4 MG/ML VIAL IV (01:54)
[2017-12-22] MEDS: KETOROLAC 30 MG INJ IV (01:54)
[2017-12-22 01:57] LABS: PROTIME 13.3 Sec (11.9-14.9)
[2017-12-22 01:58] LABS: PARTIAL THROMBOPLASTIN TIME 37.6 Sec (25.0-35.0)
[2017-12-22 02:04] LABS: ALANINE AMINOTRANSFERASE 20 IU/L (13-69); ALBUMIN 3.4 g/dl (3.3-4.9); ALBUMIN/GLOBULIN RATIO 1.03; ALKALINE PHOSPHATASE 83 IU/L (42-121); ANION GAP 14 (8-16); ASPARTATE AMINO TRANSFERASE 14 IU/L (15-46); BILIRUBIN,INDIRECT 0.3 mg/dl (0-1.1); BILIRUBIN,TOTAL 0.3 mg/dl (0.2-1.3); BLOOD UREA NITROGEN 22 mg/dl (7-20); CARBON DIOXIDE 28 mmol/L (21-31); CHLORIDE 103 mmol/L (97-110); CREATININE 0.85 mg/dl (0.44-1.00); GLUCOSE 96 mg/dl (70-220); POTASSIUM 4.4 mmol/L (3.5-5.1); SODIUM 141 mmol/L (135-144); TOTAL PROTEIN 6.7 g/dl (6.1-8.1)
[2017-12-22 02:12] LABS: B-TYPE NATRIURETIC PEPTIDE 82 PG/ML (0-125)
[2017-12-22 02:14] LABS: TROPONIN-I < 0.012 ng/ml (0.00-0.12)
[2017-12-22] MEDS ORDERED: BISACODYL (EC) 5 MG TAB PO (03:00)
[2017-12-22] MEDS ORDERED: NACL 0.9% 3 ML SYG IV (03:00)
[2017-12-22] MEDS ORDERED: DOCUSATE SODIUM 100 MG CAP PO (03:00)
[2017-12-22] MEDS ORDERED: ONDANSETRON 4 MG INJ IV (03:00)
[2017-12-22] MEDS: BUMETANIDE 1 MG INJ IV (03:26)
[2017-12-22] MEDS ORDERED: VANCOMYCIN IV PER PHARMACY XX ×2 (03:30→05:30)
[2017-12-22] MEDS ORDERED: VANCOMYCIN 1 GM in 250 ML IVPB (04:30)
[2017-12-22 05:51] LABS: ADD MAN DIFF? NO
[2017-12-22 05:57] LABS: WHITE BLOOD COUNT 7.2 10^3/ul (4.8-10.8)
[2017-12-22 05:57] LABS: BASOPHIL # 0.1 10^3/ul (0.0-0.1); BASOPHILS % 0.7 % (0.0-2.0); EOSINOPHILS # 0.3 10^3/ul (0.0-0.5); EOSINOPHILS % 4.5 % (0.0-7.0); HEMATOCRIT 33.1 % (37.0-47.0); HEMOGLOBIN 10.7 g/dl (12.0-16.0); LYMPHOCYTES % 28.5 % (15.0-51.0); MEAN CORPUSCULAR HGB CONC 32.3 g/dl (32.0-37.0); MEAN CORPUSCULAR VOLUME 92.7 fl (82.0-101.0); MEAN PLATELET VOLUME 10.1 fl (7.4-10.4); MONOCYTE # 0.6 10^3/ul (0.3-0.9); MONOCYTES % 7.8 % (0.0-11.0); NEUTROPHIL # 4.2 10^3/ul (1.6-7.5); NEUTROPHILS % 57.9 % (39.0-77.0); PLATELET COUNT 228 10^3/UL (140-415); RED BLOOD COUNT 3.57 10^6/ul (4.20-5.40); RED CELL DISTRIBUTION WIDTH 15.2 % (11.5-14.5)
[2017-12-22 06:13] LABS: ALANINE AMINOTRANSFERASE 20 IU/L (13-69); ALBUMIN/GLOBULIN RATIO 0.96; ALKALINE PHOSPHATASE 68 IU/L (42-121); ANION GAP 9 (8-16); ASPARTATE AMINO TRANSFERASE 13 IU/L (15-46); BILIRUBIN,INDIRECT 0.2 mg/dl (0-1.1); BILIRUBIN,TOTAL 0.2 mg/dl (0.2-1.3); BLOOD UREA NITROGEN 20 mg/dl (7-20); CALCIUM 8.5 mg/dl (8.4-10.2); CARBON DIOXIDE 31 mmol/L (21-31); CHLORIDE 106 mmol/L (97-110); CREATININE 0.89 mg/dl (0.44-1.00); GLUCOSE 93 mg/dl (70-220); MAGNESIUM 2.2 mg/dl (1.7-2.5); SODIUM 142 mmol/L (135-144); TOTAL PROTEIN 6.1 g/dl (6.1-8.1)
[2017-12-22] MEDS: GABAPENTIN 100 MG CAP PO ×4 (06:19→23:55)
[2017-12-22] MEDS: HYDROCODONE/APAP (5/325) TAB PO ×2 (06:21→20:30)
[2017-12-22] MEDS: VANCOMYCIN 1 GM in 250 ML IVPB (06:22)
[2017-12-22 06:30] LABS: FREE T3 3.68 pg/ml (2.77-5.27)
[2017-12-22 06:32] LABS: FREE T4 (FREE THYROXINE) 1.07 ng/dl (0.78-2.44)
[2017-12-22 06:38] LABS: HEMOGLOBIN A1C 5.6 % (0-5.9)
[2017-12-22] MEDS: ASPIRIN 81 MG TAB PO (08:40)
[2017-12-22] MEDS: ENOXAPARIN 40 MG/0.4 ML SYG SC (08:41)
[2017-12-22] MEDS: FUROSEMIDE 20 MG INJ IV ×2 (11:23→17:00)
[2017-12-22] MEDS: CLOTRIMAZOLE 1% 30 GM CR TOP ×2 (11:23→20:30)
[2017-12-22] MEDS: VANCOMYCIN 1.5 GM in SOD CHLORIDE 0.9% 250 ML IVPB (16:54)
[2017-12-22] MEDS: MONTELUKAST 10 MG TAB PO (20:30)
[2017-12-23] MEDS: VANCOMYCIN 1.5 GM in SOD CHLORIDE 0.9% 250 ML IVPB (05:44)
[2017-12-23] MEDS: FUROSEMIDE 20 MG INJ IV (05:44)
[2017-12-23] MEDS: GABAPENTIN 100 MG CAP PO ×3 (05:44→18:32)
[2017-12-23] MEDS: ENOXAPARIN 40 MG/0.4 ML SYG SC ×2 (09:00→09:37)
[2017-12-23] MEDS: IOHEXOL 300MG/ML 150 ML BTL ×3 (09:10→11:15)
[2017-12-23] MEDS: SOD CHLORIDE 0.9% 100 ML (09:10)
[2017-12-23] MEDS: ASPIRIN 81 MG TAB PO (09:36)
[2017-12-23] MEDS: CLOTRIMAZOLE 1% 30 GM CR TOP ×2 (09:37→20:55)
[2017-12-23] MEDS: POLYETHYLENE GLYCOL 17 GM PACKET PO (11:00)
[2017-12-23 11:08] LABS: ADD MAN DIFF? NO
[2017-12-23 11:12] LABS: BASOPHIL # 0.1 10^3/ul (0.0-0.1); BASOPHILS % 0.7 % (0.0-2.0); EOSINOPHILS # 0.4 10^3/ul (0.0-0.5); EOSINOPHILS % 5.1 % (0.0-7.0); HEMOGLOBIN 10.3 g/dl (12.0-16.0); LYMPHOCYTES # 1.8 10^3/ul (0.8-2.9); LYMPHOCYTES % 25.7 % (15.0-51.0); MEAN CORPUSCULAR HEMOGLOBIN 29.9 pg (29.0-33.0); MEAN CORPUSCULAR HGB CONC 32.2 g/dl (32.0-37.0); MEAN PLATELET VOLUME 9.8 fl (7.4-10.4); MONOCYTE # 0.6 10^3/ul (0.3-0.9); MONOCYTES % 8.3 % (0.0-11.0); NEUTROPHIL # 4.1 10^3/ul (1.6-7.5); NEUTROPHILS % 60.1 % (39.0-77.0); PLATELET COUNT 218 10^3/UL (140-415); RED BLOOD COUNT 3.44 10^6/ul (4.20-5.40); RED CELL DISTRIBUTION WIDTH 15.4 % (11.5-14.5)
[2017-12-23 11:12] LABS: WHITE BLOOD COUNT 6.9 10^3/ul (4.8-10.8)
[2017-12-23 11:45] LABS: IRON 54 ug/dl (35-150)
[2017-12-23 11:46] LABS: ANION GAP 12 (8-16); BLOOD UREA NITROGEN 22 mg/dl (7-20); CALCIUM 8.3 mg/dl (8.4-10.2); CARBON DIOXIDE 30 mmol/L (21-31); CHLORIDE 100 mmol/L (97-110); CREATININE 1.04 mg/dl (0.44-1.00); GLUCOSE 103 mg/dl (70-220); POTASSIUM 3.9 mmol/L (3.5-5.1); SODIUM 138 mmol/L (135-144)
[2017-12-23 11:54] LABS: % IRON SATURATION 22 % SAT (22-52); TOTAL IRON BINDING CAPACITY 245 ug/dl (241-421)
[2017-12-23 12:17] LABS: FERRITIN 46.6 ng/ml (11.1-264.0)
[2017-12-23] MEDS: MONTELUKAST 10 MG TAB PO (13:06)
[2017-12-23] MEDS: FUROSEMIDE 40 MG INJ IV (18:33)
[2017-12-24] MEDS: GABAPENTIN 100 MG CAP PO ×5 (00:01→23:44)
[2017-12-24] MEDS: HYDROCODONE/APAP (5/325) TAB PO ×2 (03:28→09:54)
[2017-12-24 05:25] LABS: ANION GAP 14 (8-16); BLOOD UREA NITROGEN 21 mg/dl (7-20); CALCIUM 8.6 mg/dl (8.4-10.2); CARBON DIOXIDE 30 mmol/L (21-31); CHLORIDE 99 mmol/L (97-110); CREATININE 0.97 mg/dl (0.44-1.00); GLUCOSE 123 mg/dl (70-220); MAGNESIUM 2.1 mg/dl (1.7-2.5); POTASSIUM 4.3 mmol/L (3.5-5.1); SODIUM 139 mmol/L (135-144)
[2017-12-24] MEDS: FUROSEMIDE 40 MG INJ IV ×3 (06:05→21:49)
[2017-12-24] MEDS: POLYETHYLENE GLYCOL 17 GM PACKET PO (09:00)
[2017-12-24] MEDS: ENOXAPARIN 40 MG/0.4 ML SYG SC (09:00)
[2017-12-24] MEDS: ASPIRIN 81 MG TAB PO (09:03)
[2017-12-24] MEDS: CLOTRIMAZOLE 1% 30 GM CR TOP ×2 (09:06→21:13)
[2017-12-24] MEDS: MONTELUKAST 10 MG TAB PO (21:00)
[2017-12-25] MEDS: GABAPENTIN 100 MG CAP PO ×4 (06:00→17:01)
[2017-12-25] MEDS: FUROSEMIDE 40 MG INJ IV ×2 (06:00→17:01)
[2017-12-25 06:09] LABS: ANION GAP 10 (8-16); BLOOD UREA NITROGEN 24 mg/dl (7-20); CALCIUM 8.7 mg/dl (8.4-10.2); CARBON DIOXIDE 32 mmol/L (21-31); CHLORIDE 103 mmol/L (97-110); CREATININE 0.86 mg/dl (0.44-1.00); GLUCOSE 111 mg/dl (70-220); MAGNESIUM 2.1 mg/dl (1.7-2.5); POTASSIUM 4.1 mmol/L (3.5-5.1); SODIUM 141 mmol/L (135-144)
[2017-12-25] MEDS: CLOTRIMAZOLE 1% 30 GM CR TOP ×2 (08:30→20:31)
[2017-12-25] MEDS: ASPIRIN 81 MG TAB PO (08:30)
[2017-12-25] MEDS: POLYETHYLENE GLYCOL 17 GM PACKET PO (09:00)
[2017-12-25] MEDS: ENOXAPARIN 40 MG/0.4 ML SYG SC (09:00)
[2017-12-25] MEDS: MONTELUKAST 10 MG TAB PO (20:31)
[2017-12-26] MEDS: GABAPENTIN 100 MG CAP PO ×4 (00:38→19:07)
[2017-12-26] MEDS: FUROSEMIDE 40 MG INJ IV ×2 (06:44→19:07)
[2017-12-26] MEDS: ENOXAPARIN 40 MG/0.4 ML SYG SC (09:00)
[2017-12-26] MEDS: POLYETHYLENE GLYCOL 17 GM PACKET PO (09:00)
[2017-12-26] MEDS: ASPIRIN 81 MG TAB PO (11:00)
[2017-12-26] MEDS: CLOTRIMAZOLE 1% 30 GM CR TOP ×2 (11:03→21:38)
[2017-12-26 11:33] LABS: ANION GAP 14 (8-16); BLOOD UREA NITROGEN 22 mg/dl (7-20); CALCIUM 9.1 mg/dl (8.4-10.2); CARBON DIOXIDE 30 mmol/L (21-31); CHLORIDE 100 mmol/L (97-110); CREATININE 0.88 mg/dl (0.44-1.00); GLUCOSE 155 mg/dl (70-220); MAGNESIUM 2.1 mg/dl (1.7-2.5); PHOSPHORUS 4.1 mg/dl (2.5-4.9); POTASSIUM 3.9 mmol/L (3.5-5.1); SODIUM 140 mmol/L (135-144)
[2017-12-26] MEDS: MONTELUKAST 10 MG TAB PO (21:00)
[2017-12-27] MEDS: GABAPENTIN 100 MG CAP PO ×5 (00:54→23:38)
[2017-12-27] MEDS: FUROSEMIDE 40 MG INJ IV ×2 (05:40→17:58)
[2017-12-27] MEDS: ENOXAPARIN 40 MG/0.4 ML SYG SC (09:00)
[2017-12-27] MEDS: POLYETHYLENE GLYCOL 17 GM PACKET PO (09:00)
[2017-12-27] MEDS: ASPIRIN 81 MG TAB PO (09:39)
[2017-12-27] MEDS: CLOTRIMAZOLE 1% 30 GM CR TOP ×2 (09:40→20:46)
[2017-12-27] MEDS: MONTELUKAST 10 MG TAB PO (21:00)
[2017-12-28] MEDS: FUROSEMIDE 40 MG INJ IV ×2 (06:10→18:28)
[2017-12-28] MEDS: GABAPENTIN 100 MG CAP PO ×3 (06:10→18:26)
[2017-12-28] MEDS: ENOXAPARIN 40 MG/0.4 ML SYG SC (08:09)
[2017-12-28] MEDS: CLOTRIMAZOLE 1% 30 GM CR TOP ×2 (08:09→22:25)
[2017-12-28] MEDS: ASPIRIN 81 MG TAB PO (08:09)
[2017-12-28] MEDS: POLYETHYLENE GLYCOL 17 GM PACKET PO (08:09)
[2017-12-28 09:59] LABS: ANION GAP 12 (8-16); BLOOD UREA NITROGEN 24 mg/dl (7-20); CALCIUM 8.8 mg/dl (8.4-10.2); CARBON DIOXIDE 32 mmol/L (21-31); CHLORIDE 101 mmol/L (97-110); CREATININE 0.92 mg/dl (0.44-1.00); GLUCOSE 147 mg/dl (70-220); MAGNESIUM 2.1 mg/dl (1.7-2.5); POTASSIUM 4.3 mmol/L (3.5-5.1); SODIUM 141 mmol/L (135-144)
[2017-12-28] MEDS: HYDROCODONE/APAP (5/325) TAB PO ×2 (16:30→22:25)
[2017-12-28] MEDS: MONTELUKAST 10 MG TAB PO (21:00)
[2017-12-29] MEDS: FUROSEMIDE 40 MG INJ IV (05:50)
[2017-12-29] MEDS: GABAPENTIN 100 MG CAP PO ×4 (05:51→18:07)
[2017-12-29] MEDS: POLYETHYLENE GLYCOL 17 GM PACKET PO (09:00)
[2017-12-29] MEDS: ENOXAPARIN 40 MG/0.4 ML SYG SC (09:00)
[2017-12-29] MEDS: CLOTRIMAZOLE 1% 30 GM CR TOP ×2 (10:12→21:15)
[2017-12-29] MEDS: ASPIRIN 81 MG TAB PO (10:13)
[2017-12-29 11:55] LABS: ADD MAN DIFF? NO
[2017-12-29 11:58] LABS: WHITE BLOOD COUNT 6.6 10^3/ul (4.8-10.8)
[2017-12-29 11:58] LABS: BASOPHIL # 0.1 10^3/ul (0.0-0.1); BASOPHILS % 1.2 % (0.0-2.0); EOSINOPHILS # 0.3 10^3/ul (0.0-0.5); EOSINOPHILS % 4.1 % (0.0-7.0); HEMATOCRIT 36.4 % (37.0-47.0); HEMOGLOBIN 11.8 g/dl (12.0-16.0); LYMPHOCYTES # 1.7 10^3/ul (0.8-2.9); LYMPHOCYTES % 26.1 % (15.0-51.0); MEAN CORPUSCULAR HEMOGLOBIN 29.8 pg (29.0-33.0); MEAN CORPUSCULAR HGB CONC 32.4 g/dl (32.0-37.0); MEAN CORPUSCULAR VOLUME 91.9 fl (82.0-101.0); MEAN PLATELET VOLUME 9.4 fl (7.4-10.4); MONOCYTE # 0.6 10^3/ul (0.3-0.9); MONOCYTES % 9.5 % (0.0-11.0); NEUTROPHIL # 3.9 10^3/ul (1.6-7.5); NEUTROPHILS % 58.5 % (39.0-77.0); PLATELET COUNT 271 10^3/UL (140-415); RED BLOOD COUNT 3.96 10^6/ul (4.20-5.40); RED CELL DISTRIBUTION WIDTH 14.8 % (11.5-14.5)
[2017-12-29 12:16] LABS: ANION GAP 10 (8-16); BLOOD UREA NITROGEN 27 mg/dl (7-20); CALCIUM 8.7 mg/dl (8.4-10.2); CARBON DIOXIDE 33 mmol/L (21-31); CHLORIDE 100 mmol/L (97-110); CREATININE 0.91 mg/dl (0.44-1.00); GLUCOSE 104 mg/dl (70-220); SODIUM 139 mmol/L (135-144)
[2017-12-29] MEDS: HYDROCODONE/APAP (5/325) TAB PO (13:34)
[2017-12-29] MEDS: FUROSEMIDE 40 MG TAB PO (18:12)
[2017-12-29] MEDS: MONTELUKAST 10 MG TAB PO (21:00)
[2017-12-29] MEDS: ACETAMINOPHEN 325 MG TAB PO (21:15)
[2017-12-30] MEDS: ACETAMINOPHEN 325 MG TAB PO ×2 (03:13→09:54)
[2017-12-30] MEDS: GABAPENTIN 100 MG CAP PO ×5 (05:53→23:41)
[2017-12-30] MEDS: FUROSEMIDE 40 MG TAB PO ×3 (06:00→22:04)
[2017-12-30] MEDS: ENOXAPARIN 40 MG/0.4 ML SYG SC (09:00)
[2017-12-30] MEDS: POLYETHYLENE GLYCOL 17 GM PACKET PO (09:00)
[2017-12-30] MEDS: ASPIRIN 81 MG TAB PO (09:50)
[2017-12-30] MEDS: CLOTRIMAZOLE 1% 30 GM CR TOP ×2 (09:54→21:06)
[2017-12-30 10:59] LABS: ADD MAN DIFF? NO
[2017-12-30 11:11] LABS: BASOPHIL # 0.1 10^3/ul (0.0-0.1); BASOPHILS % 0.9 % (0.0-2.0); EOSINOPHILS # 0.3 10^3/ul (0.0-0.5); EOSINOPHILS % 3.5 % (0.0-7.0); HEMOGLOBIN 12.3 g/dl (12.0-16.0); LYMPHOCYTES # 1.9 10^3/ul (0.8-2.9); LYMPHOCYTES % 21.1 % (15.0-51.0); MEAN CORPUSCULAR HEMOGLOBIN 29.9 pg (29.0-33.0); MEAN CORPUSCULAR HGB CONC 32.4 g/dl (32.0-37.0); MEAN CORPUSCULAR VOLUME 92.5 fl (82.0-101.0); MEAN PLATELET VOLUME 9.5 fl (7.4-10.4); MONOCYTE # 0.7 10^3/ul (0.3-0.9); MONOCYTES % 7.3 % (0.0-11.0); NEUTROPHIL # 6.1 10^3/ul (1.6-7.5); NEUTROPHILS % 66.9 % (39.0-77.0); PLATELET COUNT 293 10^3/UL (140-415); RED BLOOD COUNT 4.11 10^6/ul (4.20-5.40)
[2017-12-30 11:11] LABS: WHITE BLOOD COUNT 9.1 10^3/ul (4.8-10.8)
[2017-12-30 11:33] LABS: ANION GAP 13 (8-16); BLOOD UREA NITROGEN 29 mg/dl (7-20); CARBON DIOXIDE 28 mmol/L (21-31); CHLORIDE 104 mmol/L (97-110); GLUCOSE 125 mg/dl (70-220); POTASSIUM 4.2 mmol/L (3.5-5.1); SODIUM 141 mmol/L (135-144)
[2017-12-30] MEDS: CEPHALEXIN 500 MG CAP PO ×2 (17:41→22:04)
[2017-12-30] MEDS: MONTELUKAST 10 MG TAB PO (21:00)
[2017-12-31] MEDS: GABAPENTIN 100 MG CAP PO ×3 (06:08→18:03)
[2017-12-31] MEDS: CEPHALEXIN 500 MG CAP PO ×3 (06:08→21:17)
[2017-12-31] MEDS: FUROSEMIDE 40 MG TAB PO ×2 (06:08→18:03)
[2017-12-31] MEDS: ENOXAPARIN 40 MG/0.4 ML SYG SC (09:00)
[2017-12-31] MEDS: POLYETHYLENE GLYCOL 17 GM PACKET PO (09:00)
[2017-12-31] MEDS: ACETAMINOPHEN 325 MG TAB PO (09:06)
[2017-12-31] MEDS: ASPIRIN 81 MG TAB PO (09:26)
[2017-12-31] MEDS: CLOTRIMAZOLE 1% 30 GM CR TOP ×2 (09:27→21:21)
[2017-12-31 13:55] LABS: ADD MAN DIFF? NO
[2017-12-31 13:57] LABS: WHITE BLOOD COUNT 8.7 10^3/ul (4.8-10.8)
[2017-12-31 13:57] LABS: BASOPHIL # 0.1 10^3/ul (0.0-0.1); BASOPHILS % 0.9 % (0.0-2.0); EOSINOPHILS # 0.2 10^3/ul (0.0-0.5); EOSINOPHILS % 2.7 % (0.0-7.0); HEMATOCRIT 36.9 % (37.0-47.0); LYMPHOCYTES # 2.2 10^3/ul (0.8-2.9); LYMPHOCYTES % 25.5 % (15.0-51.0); MEAN CORPUSCULAR HEMOGLOBIN 29.6 pg (29.0-33.0); MEAN CORPUSCULAR HGB CONC 32.5 g/dl (32.0-37.0); MEAN CORPUSCULAR VOLUME 91.1 fl (82.0-101.0); MEAN PLATELET VOLUME 9.3 fl (7.4-10.4); MONOCYTE # 0.7 10^3/ul (0.3-0.9); MONOCYTES % 7.7 % (0.0-11.0); NEUTROPHIL # 5.5 10^3/ul (1.6-7.5); NEUTROPHILS % 62.9 % (39.0-77.0); PLATELET COUNT 270 10^3/UL (140-415); RED BLOOD COUNT 4.05 10^6/ul (4.20-5.40); RED CELL DISTRIBUTION WIDTH 15.1 % (11.5-14.5)
[2017-12-31 14:24] LABS: ANION GAP 15 (8-16); BLOOD UREA NITROGEN 22 mg/dl (7-20); CALCIUM 8.7 mg/dl (8.4-10.2); CARBON DIOXIDE 27 mmol/L (21-31); CHLORIDE 102 mmol/L (97-110); CREATININE 0.86 mg/dl (0.44-1.00); GLUCOSE 113 mg/dl (70-220); SODIUM 140 mmol/L (135-144)
[2017-12-31] MEDS: MONTELUKAST 10 MG TAB PO (21:00)
[2018-01-01] MEDS: GABAPENTIN 100 MG CAP PO ×5 (00:26→23:27)
[2018-01-01] MEDS: CEPHALEXIN 500 MG CAP PO ×3 (06:14→21:53)
[2018-01-01] MEDS: FUROSEMIDE 40 MG TAB PO ×2 (06:14→18:03)
[2018-01-01] MEDS: POLYETHYLENE GLYCOL 17 GM PACKET PO (08:57)
[2018-01-01] MEDS: ENOXAPARIN 40 MG/0.4 ML SYG SC (08:57)
[2018-01-01] MEDS: ACETAMINOPHEN 325 MG TAB PO (09:06)
[2018-01-01] MEDS: ASPIRIN 81 MG TAB PO (09:06)
[2018-01-01] MEDS: CLOTRIMAZOLE 1% 30 GM CR TOP ×2 (09:06→21:53)
[2018-01-01 11:06] LABS: ADD MAN DIFF? NO
[2018-01-01 11:08] LABS: BASOPHIL # 0.1 10^3/ul (0.0-0.1); EOSINOPHILS # 0.3 10^3/ul (0.0-0.5); EOSINOPHILS % 4.3 % (0.0-7.0); HEMATOCRIT 38.5 % (37.0-47.0); HEMOGLOBIN 12.7 g/dl (12.0-16.0); LYMPHOCYTES # 1.7 10^3/ul (0.8-2.9); LYMPHOCYTES % 23.9 % (15.0-51.0); MEAN PLATELET VOLUME 9.2 fl (7.4-10.4); MONOCYTE # 0.5 10^3/ul (0.3-0.9); MONOCYTES % 7.4 % (0.0-11.0); NEUTROPHIL # 4.4 10^3/ul (1.6-7.5); NEUTROPHILS % 63.1 % (39.0-77.0); PLATELET COUNT 286 10^3/UL (140-415); RED BLOOD COUNT 4.23 10^6/ul (4.20-5.40); RED CELL DISTRIBUTION WIDTH 15.1 % (11.5-14.5)
[2018-01-01 11:26] LABS: ANION GAP 13 (8-16); BLOOD UREA NITROGEN 19 mg/dl (7-20); CARBON DIOXIDE 28 mmol/L (21-31); CHLORIDE 103 mmol/L (97-110); CREATININE 0.89 mg/dl (0.44-1.00); GLUCOSE 180 mg/dl (70-220); POTASSIUM 3.9 mmol/L (3.5-5.1); SODIUM 140 mmol/L (135-144)
[2018-01-01] MEDS: MONTELUKAST 10 MG TAB PO (21:00)
[2018-01-02] MEDS: CEPHALEXIN 500 MG CAP PO (06:00)
[2018-01-02] MEDS: GABAPENTIN 100 MG CAP PO ×4 (06:25→23:23)
[2018-01-02] MEDS: FUROSEMIDE 40 MG TAB PO ×2 (06:25→17:48)
[2018-01-02] MEDS: ENOXAPARIN 40 MG/0.4 ML SYG SC (09:00)
[2018-01-02] MEDS: POLYETHYLENE GLYCOL 17 GM PACKET PO (09:00)
[2018-01-02] MEDS: CLOTRIMAZOLE 1% 30 GM CR TOP ×4 (09:11→23:13)
[2018-01-02] MEDS: ASPIRIN 81 MG TAB PO (09:11)
[2018-01-02] MEDS: ACETAMINOPHEN 325 MG TAB PO (09:14)
[2018-01-02 11:20] LABS: ADD MAN DIFF? NO
[2018-01-02 11:21] LABS: BASOPHIL # 0.1 10^3/ul (0.0-0.1); BASOPHILS % 1.1 % (0.0-2.0); EOSINOPHILS # 0.3 10^3/ul (0.0-0.5); EOSINOPHILS % 4.6 % (0.0-7.0); HEMATOCRIT 36.8 % (37.0-47.0); HEMOGLOBIN 11.9 g/dl (12.0-16.0); LYMPHOCYTES # 1.9 10^3/ul (0.8-2.9); LYMPHOCYTES % 26.7 % (15.0-51.0); MEAN CORPUSCULAR HGB CONC 32.3 g/dl (32.0-37.0); MEAN CORPUSCULAR VOLUME 92.7 fl (82.0-101.0); MEAN PLATELET VOLUME 9.7 fl (7.4-10.4); MONOCYTE # 0.6 10^3/ul (0.3-0.9); MONOCYTES % 7.9 % (0.0-11.0); NEUTROPHIL # 4.2 10^3/ul (1.6-7.5); NEUTROPHILS % 59.1 % (39.0-77.0); PLATELET COUNT 295 10^3/UL (140-415); RED BLOOD COUNT 3.97 10^6/ul (4.20-5.40)
[2018-01-02 11:21] LABS: WHITE BLOOD COUNT 7.1 10^3/ul (4.8-10.8)
[2018-01-02 11:38] LABS: ANION GAP 12 (8-16); BLOOD UREA NITROGEN 26 mg/dl (7-20); CALCIUM 8.7 mg/dl (8.4-10.2); CARBON DIOXIDE 33 mmol/L (21-31); CHLORIDE 100 mmol/L (97-110); CREATININE 0.93 mg/dl (0.44-1.00); GLUCOSE 161 mg/dl (70-220); POTASSIUM 3.6 mmol/L (3.5-5.1); SODIUM 141 mmol/L (135-144)
[2018-01-02] MEDS: MONTELUKAST 10 MG TAB PO (16:18)
[2018-01-02] MEDS: LIDOCAINE 5% 35 GM OINT TOP (23:13)
[2018-01-03] MEDS: ACETAMINOPHEN 325 MG TAB PO ×2 (06:24→23:03)
[2018-01-03] MEDS: FUROSEMIDE 40 MG TAB PO (06:25)
[2018-01-03] MEDS: GABAPENTIN 100 MG CAP PO ×4 (06:25→23:37)
[2018-01-03] MEDS: ENOXAPARIN 40 MG/0.4 ML SYG SC (09:00)
[2018-01-03] MEDS: POLYETHYLENE GLYCOL 17 GM PACKET PO (09:00)
[2018-01-03] MEDS: ASPIRIN 81 MG TAB PO (09:00)
[2018-01-03] MEDS: CLOTRIMAZOLE 1% 30 GM CR TOP ×2 (09:23→20:55)
[2018-01-03] MEDS: MONTELUKAST 10 MG TAB PO (20:55)
[2018-01-03] MEDS: FUROSEMIDE 20 MG TAB PO (22:33)
[2018-01-04] MEDS ORDERED: GABAPENTIN 100 MG CAP PO (06:00)
[2018-01-04] MEDS: GABAPENTIN 100 MG CAP PO ×3 (06:07→21:20)
[2018-01-04] MEDS: ENOXAPARIN 40 MG/0.4 ML SYG SC (09:00)
[2018-01-04] MEDS: POLYETHYLENE GLYCOL 17 GM PACKET PO (09:00)
[2018-01-04] MEDS: ASPIRIN 81 MG TAB PO (09:38)
[2018-01-04] MEDS: FUROSEMIDE 40 MG TAB PO (09:38)
[2018-01-04] MEDS: CLOTRIMAZOLE 1% 30 GM CR TOP (09:38)
[2018-01-04 13:05] LABS: ADD MAN DIFF? NO
[2018-01-04 13:07] LABS: BASOPHIL # 0.1 10^3/ul (0.0-0.1); BASOPHILS % 1.4 % (0.0-2.0); EOSINOPHILS # 0.3 10^3/ul (0.0-0.5); EOSINOPHILS % 3.8 % (0.0-7.0); HEMATOCRIT 38.3 % (37.0-47.0); HEMOGLOBIN 12.3 g/dl (12.0-16.0); LYMPHOCYTES % 29.5 % (15.0-51.0); MEAN CORPUSCULAR HEMOGLOBIN 29.6 pg (29.0-33.0); MEAN CORPUSCULAR HGB CONC 32.1 g/dl (32.0-37.0); MEAN CORPUSCULAR VOLUME 92.1 fl (82.0-101.0); MEAN PLATELET VOLUME 9.7 fl (7.4-10.4); MONOCYTE # 0.5 10^3/ul (0.3-0.9); MONOCYTES % 7.4 % (0.0-11.0); NEUTROPHILS % 57.5 % (39.0-77.0); PLATELET COUNT 324 10^3/UL (140-415); RED BLOOD COUNT 4.16 10^6/ul (4.20-5.40); RED CELL DISTRIBUTION WIDTH 15.1 % (11.5-14.5)
[2018-01-04 13:07] LABS: WHITE BLOOD COUNT 6.9 10^3/ul (4.8-10.8)
[2018-01-04 13:29] LABS: ALANINE AMINOTRANSFERASE 17 IU/L (13-69); ALBUMIN 3.8 g/dl (3.3-4.9); ALBUMIN/GLOBULIN RATIO 1.08; ALKALINE PHOSPHATASE 73 IU/L (42-121); ANION GAP 14 (8-16); ASPARTATE AMINO TRANSFERASE 17 IU/L (15-46); BILIRUBIN,INDIRECT 0.3 mg/dl (0-1.1); BILIRUBIN,TOTAL 0.3 mg/dl (0.2-1.3); BLOOD UREA NITROGEN 25 mg/dl (7-20); CARBON DIOXIDE 29 mmol/L (21-31); CHLORIDE 102 mmol/L (97-110); CREATININE 0.91 mg/dl (0.44-1.00); GLUCOSE 117 mg/dl (70-220); POTASSIUM 4.5 mmol/L (3.5-5.1); SODIUM 140 mmol/L (135-144); TOTAL PROTEIN 7.3 g/dl (6.1-8.1)
[2018-01-04 13:30] LABS: PHOSPHORUS 3.8 mg/dl (2.5-4.9)
[2018-01-04 13:30] LABS: MAGNESIUM 2.3 mg/dl (1.7-2.5)
[2018-01-04] MEDS: MONTELUKAST 10 MG TAB PO (21:00)
[2018-01-05] MEDS: GABAPENTIN 100 MG CAP PO ×3 (05:59→21:30)
[2018-01-05] MEDS: POLYETHYLENE GLYCOL 17 GM PACKET PO (09:00)
[2018-01-05] MEDS: ENOXAPARIN 40 MG/0.4 ML SYG SC (09:00)
[2018-01-05] MEDS: ACETAMINOPHEN 325 MG TAB PO (09:36)
[2018-01-05] MEDS: ASPIRIN 81 MG TAB PO (09:36)
[2018-01-05] MEDS: FUROSEMIDE 40 MG TAB PO (09:37)
[2018-01-05] MEDS: MONTELUKAST 10 MG TAB PO (19:49)
[2018-01-06] MEDS: GABAPENTIN 100 MG CAP PO ×3 (06:11→20:59)
[2018-01-06] MEDS: ACETAMINOPHEN 325 MG TAB PO ×2 (06:13→21:03)
[2018-01-06] MEDS: ENOXAPARIN 40 MG/0.4 ML SYG SC (08:44)
[2018-01-06] MEDS: POLYETHYLENE GLYCOL 17 GM PACKET PO (08:44)
[2018-01-06] MEDS: ASPIRIN 81 MG TAB PO (08:51)
[2018-01-06] MEDS: FUROSEMIDE 40 MG TAB PO (08:51)
[2018-01-06] MEDS: MONTELUKAST 10 MG TAB PO (20:59)
== END 2018-01-06 21:30 | disposition home or self-care (01) | DRG 607 ==
LOC: MS1 12-22 02:58 → E/R 22:23
DX: I89.0 Lymphedema, not elsewhere classified (principal); Z68.43 Body mass index [BMI] 50.0-59.9, adult; N39.0 Urinary tract infection, site not specified; I87.2 Venous insufficiency (chronic) (peripheral); E66.01 Morbid (severe) obesity due to excess calories; Z79.82 Long term (current) use of aspirin; Z59.0 Homelessness; B96.89 Other specified bacterial agents as the cause of diseases classified elsewhere; R23.4 Changes in skin texture; M77.31 Calcaneal spur, right foot
CPT/HCPCS: 36415; 71045; 73630-50; 73700; 74178; 80048; 80053; 81001; 82728; 83036; 83540; 83605; 83735; 83880; 84100; 84439; 84443; 84481; 84484; 85025; 85610; 85730; 87040; 87086; 93005; 93306; 93970; 96374; 96375; 97161; 99285-25

== ENCOUNTER 2018-01-09 01:57 | Emergency (ER) | payer MEDICAID ==
[2018-01-09 03:27] LABS: ADD MAN DIFF? NO
[2018-01-09 03:29] LABS: WHITE BLOOD COUNT 9.5 10^3/ul (4.8-10.8)
[2018-01-09 03:29] LABS: BASOPHIL # 0.1 10^3/ul (0.0-0.1); BASOPHILS % 1.1 % (0.0-2.0); EOSINOPHILS # 0.2 10^3/ul (0.0-0.5); EOSINOPHILS % 1.8 % (0.0-7.0); HEMATOCRIT 39.2 % (37.0-47.0); HEMOGLOBIN 12.8 g/dl (12.0-16.0); LYMPHOCYTES # 2.4 10^3/ul (0.8-2.9); LYMPHOCYTES % 25.7 % (15.0-51.0); MEAN CORPUSCULAR HEMOGLOBIN 30.1 pg (29.0-33.0); MEAN CORPUSCULAR HGB CONC 32.7 g/dl (32.0-37.0); MEAN CORPUSCULAR VOLUME 92.2 fl (82.0-101.0); MEAN PLATELET VOLUME 9.5 fl (7.4-10.4); MONOCYTE # 0.7 10^3/ul (0.3-0.9); MONOCYTES % 7.4 % (0.0-11.0); NEUTROPHILS % 63.7 % (39.0-77.0); PLATELET COUNT 343 10^3/UL (140-415); RED BLOOD COUNT 4.25 10^6/ul (4.20-5.40); RED CELL DISTRIBUTION WIDTH 15.1 % (11.5-14.5)
[2018-01-09 03:57] LABS: ANION GAP 15 (8-16); BLOOD UREA NITROGEN 36 mg/dl (7-20); CALCIUM 9.2 mg/dl (8.4-10.2); CARBON DIOXIDE 29 mmol/L (21-31); CHLORIDE 101 mmol/L (97-110); GLUCOSE 126 mg/dl (70-220); POTASSIUM 4.2 mmol/L (3.5-5.1); SODIUM 141 mmol/L (135-144)
[2018-01-09] MEDS: SOD CHLORIDE 0.9% 500 ML IV (05:05)
[2018-01-09] MEDS: FUROSEMIDE 20 MG INJ IV (07:42)
== END 2018-01-09 08:07 | disposition home or self-care (01) ==
LOC: E/R 01:57
DX: E86.0 Dehydration (principal); Z79.82 Long term (current) use of aspirin
CPT/HCPCS: 36415; 71045; 80048; 85025; 93005; 96374; 99285-25

== ENCOUNTER 2018-01-16 16:03 | Inpatient (IN) | payer MEDICAID, OTHER ==
[2018-01-16 19:42] LABS: ADD MAN DIFF? NO
[2018-01-16 19:44] LABS: WHITE BLOOD COUNT 7.6 10^3/ul (4.8-10.8)
[2018-01-16 19:44] LABS: BASOPHIL # 0.1 10^3/ul (0.0-0.1); BASOPHILS % 0.9 % (0.0-2.0); EOSINOPHILS # 0.2 10^3/ul (0.0-0.5); EOSINOPHILS % 2.9 % (0.0-7.0); HEMATOCRIT 35.8 % (37.0-47.0); HEMOGLOBIN 11.6 g/dl (12.0-16.0); LYMPHOCYTES # 2.2 10^3/ul (0.8-2.9); LYMPHOCYTES % 28.6 % (15.0-51.0); MEAN CORPUSCULAR HEMOGLOBIN 29.9 pg (29.0-33.0); MEAN CORPUSCULAR HGB CONC 32.4 g/dl (32.0-37.0); MEAN CORPUSCULAR VOLUME 92.3 fl (82.0-101.0); MEAN PLATELET VOLUME 10.1 fl (7.4-10.4); MONOCYTE # 0.6 10^3/ul (0.3-0.9); MONOCYTES % 7.9 % (0.0-11.0); NEUTROPHIL # 4.5 10^3/ul (1.6-7.5); NEUTROPHILS % 59.3 % (39.0-77.0); PLATELET COUNT 241 10^3/UL (140-415); RED BLOOD COUNT 3.88 10^6/ul (4.20-5.40); RED CELL DISTRIBUTION WIDTH 14.7 % (11.5-14.5)
[2018-01-16] MEDS: HYDROmorphONE 1 MG/5 ML IV SYRINGE IV (19:48)
[2018-01-16] MEDS: ONDANSETRON 4 MG INJ IV (19:48)
[2018-01-16] MEDS: FUROSEMIDE 40 MG INJ IV (19:56)
[2018-01-16 20:07] LABS: ALANINE AMINOTRANSFERASE 14 IU/L (13-69); ALBUMIN 3.9 g/dl (3.3-4.9); ALBUMIN/GLOBULIN RATIO 1.02; ALKALINE PHOSPHATASE 79 IU/L (42-121); ANION GAP 14 (8-16); ASPARTATE AMINO TRANSFERASE 23 IU/L (15-46); BILIRUBIN,INDIRECT 0.4 mg/dl (0-1.1); BILIRUBIN,TOTAL 0.4 mg/dl (0.2-1.3); BLOOD UREA NITROGEN 26 mg/dl (7-20); CALCIUM 8.7 mg/dl (8.4-10.2); CARBON DIOXIDE 29 mmol/L (21-31); CHLORIDE 103 mmol/L (97-110); CREATININE 0.88 mg/dl (0.44-1.00); GLUCOSE 102 mg/dl (70-220); POTASSIUM 3.9 mmol/L (3.5-5.1); SODIUM 142 mmol/L (135-144); TOTAL PROTEIN 7.7 g/dl (6.1-8.1)
[2018-01-16 20:09] LABS: LACTIC ACID 1.3 mmol/L (0.5-2.0)
[2018-01-16 20:10] LABS: PROTIME 13.3 Sec (11.9-14.9)
[2018-01-16 20:11] LABS: PARTIAL THROMBOPLASTIN TIME 36.6 Sec (25.0-35.0)
[2018-01-16 20:18] LABS: ADD UMIC NO; UR ASCORBIC ACID NEGATIVE (NEGATIVE); UR BILIRUBIN (Dip) NEGATIVE (NEGATIVE); UR BLOOD (Dip) NEGATIVE (NEGATIVE); UR CLARITY SLIGHTLY CLOUDY (CLEAR); UR COLOR YELLOW (YELLOW); UR GLUCOSE (Dip) NEGATIVE (NEGATIVE); UR KETONES (Dip) NEGATIVE (NEGATIVE); UR LEUKOCYTE ESTERASE (Dip) NEGATIVE Leu/ul (NEGATIVE); UR MUCUS FEW /HPF (NONE SEEN); UR NITRITE (Dip) NEGATIVE (NEGATIVE); UR RBC 3 /HPF (0-5); UR SPECIFIC GRAVITY (Dip) 1.027 (1.003-1.030); UR SQUAMOUS EPITHELIAL CELL FEW /HPF (FEW); UR TOTAL PROTEIN (Dip) NEGATIVE (NEGATIVE); UR UROBILINOGEN (Dip) NEGATIVE (NEGATIVE); UR WBC 1 /HPF (0-5)
[2018-01-16 20:19] LABS: TROPONIN-I < 0.012 ng/ml (0.000-0.120)
[2018-01-16] MEDS: CEFAZOLIN 1 GM/50 ML (PMX) 50 ML IVPB (23:01)
[2018-01-17] MEDS ORDERED: BISACODYL 10 MG SUPP PR (13:00)
[2018-01-17] MEDS ORDERED: ACETAMINOPHEN 325 MG TAB PO (13:00)
[2018-01-17] MEDS ORDERED: NACL 0.9% 3 ML SYG IV (13:00)
[2018-01-17] MEDS ORDERED: DOCUSATE SODIUM 100 MG CAP PO (13:00)
[2018-01-17] MEDS ORDERED: ONDANSETRON 4 MG INJ IV ×2 (13:00)
[2018-01-17] MEDS ORDERED: ACETAMINOPHEN 650 MG SUPP PR (13:00)
[2018-01-17] MEDS: FUROSEMIDE 40 MG INJ IV (13:28)
[2018-01-17] MEDS: PANTOPRAZOLE 40 MG INJ IV (13:28)
[2018-01-17] MEDS: GABAPENTIN 100 MG CAP PO (18:02)
[2018-01-17] MEDS: ACETAMINOPHEN 325 MG TAB PO (19:47)
[2018-01-17] MEDS: MONTELUKAST 10 MG TAB PO (21:00)
[2018-01-18] MEDS: GABAPENTIN 100 MG CAP PO ×4 (00:10→18:15)
[2018-01-18] MEDS: PANTOPRAZOLE 40 MG INJ IV (05:11)
[2018-01-18] MEDS: CHOLECALCIFEROL 2,000 UNIT CAP PO (09:43)
[2018-01-18] MEDS: FUROSEMIDE 40 MG INJ IV (09:43)
[2018-01-18 11:10] LABS: ADD MAN DIFF? NO
[2018-01-18 11:19] LABS: BASOPHIL # 0.1 10^3/ul (0.0-0.1); BASOPHILS % 0.8 % (0.0-2.0); EOSINOPHILS # 0.2 10^3/ul (0.0-0.5); EOSINOPHILS % 3.5 % (0.0-7.0); HEMATOCRIT 32.5 % (37.0-47.0); HEMOGLOBIN 10.4 g/dl (12.0-16.0); LYMPHOCYTES # 1.9 10^3/ul (0.8-2.9); LYMPHOCYTES % 30.3 % (15.0-51.0); MEAN CORPUSCULAR HEMOGLOBIN 30.3 pg (29.0-33.0); MEAN CORPUSCULAR VOLUME 94.8 fl (82.0-101.0); MEAN PLATELET VOLUME 10.5 fl (7.4-10.4); MONOCYTE # 0.6 10^3/ul (0.3-0.9); MONOCYTES % 9.4 % (0.0-11.0); NEUTROPHIL # 3.5 10^3/ul (1.6-7.5); NEUTROPHILS % 55.5 % (39.0-77.0); PLATELET COUNT 206 10^3/UL (140-415); RED BLOOD COUNT 3.43 10^6/ul (4.20-5.40); RED CELL DISTRIBUTION WIDTH 14.8 % (11.5-14.5)
[2018-01-18 11:19] LABS: WHITE BLOOD COUNT 6.3 10^3/ul (4.8-10.8)
[2018-01-18 11:43] LABS: ALANINE AMINOTRANSFERASE 23 IU/L (13-69); ALBUMIN/GLOBULIN RATIO 0.96; ALKALINE PHOSPHATASE 60 IU/L (42-121); ANION GAP 12 (8-16); ASPARTATE AMINO TRANSFERASE 33 IU/L (15-46); BILIRUBIN,INDIRECT 0.4 mg/dl (0-1.1); BILIRUBIN,TOTAL 0.4 mg/dl (0.2-1.3); BLOOD UREA NITROGEN 17 mg/dl (7-20); CALCIUM 8.2 mg/dl (8.4-10.2); CARBON DIOXIDE 32 mmol/L (21-31); CHLORIDE 103 mmol/L (97-110); CHOL/HDL RATIO 4.3 RATIO; CHOLESTEROL 129 mg/dl (100-200); CREATININE 0.95 mg/dl (0.44-1.00); GLUCOSE 90 mg/dl (70-220); HDL CHOLESTEROL 30 mg/dl (35-98); LDL CHOLESTEROL,CALCULATED 85 mg/dl; MAGNESIUM 2.2 mg/dl (1.7-2.5); PHOSPHORUS 3.9 mg/dl (2.5-4.9); POTASSIUM 3.6 mmol/L (3.5-5.1); SODIUM 143 mmol/L (135-144); TOTAL PROTEIN 6.1 g/dl (6.1-8.1); TRIGLYCERIDES 69 mg/dl (0-149)
[2018-01-18 11:52] LABS: HEMOGLOBIN A1C 5.9 % (0-5.9)
[2018-01-18 16:19] LABS: FREE THYROXINE INDEX (Calc) 2.31 ug/ml (0.65-3.89)
[2018-01-18 16:38] LABS: T3 UPTAKE 36.7 % (23.5-40.5); T4 (THYROXINE) 6.3 ug/dl (5.5-11.0)
[2018-01-18] MEDS: METHOCARBAMOL 500 MG TAB PO (18:20)
[2018-01-18] MEDS: ACETAMINOPHEN 325 MG TAB PO (19:37)
[2018-01-18] MEDS: MONTELUKAST 10 MG TAB PO (21:00)
[2018-01-19] MEDS: GABAPENTIN 100 MG CAP PO ×4 (00:32→17:28)
[2018-01-19] MEDS: METHOCARBAMOL 500 MG TAB PO ×3 (00:35→17:44)
[2018-01-19] MEDS: PANTOPRAZOLE 40 MG INJ IV (05:13)
[2018-01-19] MEDS: FUROSEMIDE 40 MG INJ IV ×2 (09:35→17:28)
[2018-01-19] MEDS: CHOLECALCIFEROL 2,000 UNIT CAP PO (09:35)
[2018-01-19] MEDS: ACETAMINOPHEN 325 MG TAB PO ×3 (09:35→21:12)
[2018-01-19] MEDS: MONTELUKAST 10 MG TAB PO (20:42)
[2018-01-20] MEDS: GABAPENTIN 100 MG CAP PO ×5 (00:06→23:37)
[2018-01-20] MEDS: FUROSEMIDE 40 MG INJ IV ×2 (06:15→17:22)
[2018-01-20] MEDS: ACETAMINOPHEN 325 MG TAB PO ×2 (06:49→20:40)
[2018-01-20] MEDS: METHOCARBAMOL 500 MG TAB PO ×2 (06:49→20:40)
[2018-01-20] MEDS: LIDOCAINE 5% 35 GM OINT TOP (06:51)
[2018-01-20] MEDS: CHOLECALCIFEROL 2,000 UNIT CAP PO (08:46)
[2018-01-20 09:38] LABS: ANION GAP 9 (8-16); BLOOD UREA NITROGEN 17 mg/dl (7-20); CALCIUM 8.6 mg/dl (8.4-10.2); CARBON DIOXIDE 35 mmol/L (21-31); CHLORIDE 102 mmol/L (97-110); CREATININE 0.87 mg/dl (0.44-1.00); GLUCOSE 148 mg/dl (70-220); POTASSIUM 3.8 mmol/L (3.5-5.1); SODIUM 142 mmol/L (135-144)
[2018-01-20] MEDS: MONTELUKAST 10 MG TAB PO (21:00)
[2018-01-21] MEDS: ACETAMINOPHEN 325 MG TAB PO ×2 (05:20→21:11)
[2018-01-21] MEDS: METHOCARBAMOL 500 MG TAB PO ×2 (05:21→21:11)
[2018-01-21] MEDS: GABAPENTIN 100 MG CAP PO ×4 (06:04→23:36)
[2018-01-21] MEDS: FUROSEMIDE 40 MG INJ IV ×2 (06:42→18:41)
[2018-01-21] MEDS: CHOLECALCIFEROL 2,000 UNIT CAP PO (08:29)
[2018-01-21 14:33] LABS: ANION GAP 14 (8-16); BLOOD UREA NITROGEN 22 mg/dl (7-20); CALCIUM 9.2 mg/dl (8.4-10.2); CARBON DIOXIDE 29 mmol/L (21-31); CHLORIDE 101 mmol/L (97-110); CREATININE 0.89 mg/dl (0.44-1.00); GLUCOSE 135 mg/dl (70-220); POTASSIUM 3.9 mmol/L (3.5-5.1); SODIUM 140 mmol/L (135-144)
[2018-01-21] MEDS: MONTELUKAST 10 MG TAB PO (21:00)
[2018-01-22] MEDS: GABAPENTIN 100 MG CAP PO ×3 (06:07→17:30)
[2018-01-22] MEDS: FUROSEMIDE 40 MG INJ IV ×2 (06:08→17:31)
[2018-01-22] MEDS: CHOLECALCIFEROL 2,000 UNIT CAP PO (08:31)
[2018-01-22] MEDS: METHOCARBAMOL 500 MG TAB PO ×2 (08:33→22:01)
[2018-01-22] MEDS: ACETAMINOPHEN 325 MG TAB PO ×2 (08:33→22:00)
[2018-01-22] MEDS: MONTELUKAST 10 MG TAB PO (21:22)
== END 2018-01-22 23:20 | disposition home or self-care (01) | DRG 607 ==
LOC: E/R 16:03 → MS2 01-17 12:51
DX: I89.0 Lymphedema, not elsewhere classified (principal); Z68.43 Body mass index [BMI] 50.0-59.9, adult; E66.01 Morbid (severe) obesity due to excess calories; Z59.0 Homelessness; L25.9 Unspecified contact dermatitis, unspecified cause; R53.81 Other malaise; G62.9 Polyneuropathy, unspecified; Z98.84 Bariatric surgery status
CPT/HCPCS: 80048; 80053; 80061; 81001; 81003; 83036; 83605; 83735; 84100; 84436; 84443; 84479; 84484; 85025; 85610; 85730; 87040; 87081; 87086; 93005; 96374; 96375; 97110; 97116; 97162; 97530; 99285-25